=== PATIENT | female | born 1970 | race Caucasian/White ===

== ENCOUNTER 2022-03-20 13:16 | Emergency (ER) | payer MEDICARE, MEDICAID ==
[~2022-03-20] VITALS: Ht 154.9 cm; Wt 77.0 kg
[2022-03-20 13:47] VITALS: BP 138/70
== END 2022-03-20 15:16 | disposition home or self-care (01) ==
LOC: ER 13:17
DX: M79.662 Pain in left lower leg (principal); Z88.5 Allergy status to narcotic agent
CPT/HCPCS: 93971; 99284

== ENCOUNTER 2022-08-27 13:03 | Emergency (ER) | payer MEDICARE, MEDICAID ==
[~2022-08-27] VITALS: Ht 154.9 cm; Wt 80.0 kg
[2022-08-27 13:14] VITALS: BP 127/66
== END 2022-08-27 17:48 | disposition left against medical advice (07) ==
LOC: ER 13:03
DX: R51.9 Headache, unspecified (principal); Z53.21 Procedure and treatment not carried out due to patient leaving prior to being seen by health care provider
CPT/HCPCS: 99281

== ENCOUNTER 2023-10-01 11:43 | Day surgery (SDC) | payer MEDICARE, MEDICAID ==
[~2023-10-01] VITALS: Ht 154.9 cm; Wt 75.4 kg
[2023-10-01 12:02] VITALS: BP 131/92; PULSE 60; RESP 16
[2023-10-01] MEDS ORDERED: fentaNYL/PF 50MCG/1 ML 2ML syringe ONE (12:05)
[2023-10-01] MEDS ORDERED: MIDAZolam 1 MG/ML 5ML VIAL ONE (12:06)
[2023-10-01] MEDS ORDERED: ondansetron/PF 4mg/2ml inj ONE (12:06)
[2023-10-01] MEDS ORDERED: LIOT5TAB10 PO (12:10)
[2023-10-01] MEDS ORDERED: GUSE100A (12:10)
[2023-10-01] MEDS ORDERED: MONT-40 PO (12:10)
[2023-10-01] MEDS ORDERED: MOMETASONE (12:10)
[2023-10-01] MEDS ORDERED: QUET25TA36 (12:10)
[2023-10-01] MEDS ORDERED: LEVO125T PO (12:10)
[2023-10-01] MEDS ORDERED: ALBU18HF2 INH (12:10)
[2023-10-01] MEDS ORDERED: SEMA2.4P (12:10)
[2023-10-01 12:44] VITALS: BP 131/81; PULSE 78; RESP 15; O2SAT 99
[2023-10-01 12:54] VITALS: BP 144/71; PULSE 77; RESP 15; O2SAT 97
[2023-10-01 13:04] VITALS: BP 120/73; PULSE 77; RESP 15; O2SAT 97
[2023-10-01 13:14] VITALS: BP 125/72; PULSE 96; RESP 15; O2SAT 96
== END 2023-10-01 13:30 | disposition home or self-care (01) ==
LOC: GI LAB 11:43
PROVIDERS: ATTEND Internal Medicine Gastroenterology
DX: Z12.11 Encounter for screening for malignant neoplasm of colon (principal); K64.8 Other hemorrhoids; D12.8 Benign neoplasm of rectum; K57.30 Diverticulosis of large intestine without perforation or abscess without bleeding
CPT/HCPCS: 45385; 99153; G0500; J2250; J3010; J7030; Z7512; 99152; A4620; C1889; J2405